=== PATIENT | female | born 1995 | race Caucasian/White ===

== ENCOUNTER 2019-06-26 06:35 | Emergency (ER) | payer BC ==
[2019-06-26] MEDS ORDERED: TETRACAINE HCL 0.5% 4 ML OPHTH SOLN ONE (06:47)
[2019-06-26] MEDS ORDERED: FLUORESCEIN SODIUM 1 STRIP STRIP ONE (06:48)
[2019-06-26] MEDS ORDERED: NA BORATE/BORIC AC/H2O/NACL 120 ML OPHTH IRRIG SOLN ONE (07:25)
== END 2019-06-26 07:39 | disposition home or self-care (01) ==
LOC: EDH 06:35
DX: H10.212 Acute toxic conjunctivitis, left eye (principal)